=== PATIENT | male | born 1970 | race Caucasian/White ===

== ENCOUNTER → 2016-10-05 | Outpatient (CLI) | payer OTHER ==
[2016-10-05 13:18] LABS: BASO % 0.2 %; BASO ABS # 0.01 K/uL (0-0.2); COMPLETE YES; HEMATOCRIT 44.6 % (42-52); IG% 0.2 %; LYMPH % 26.4 %; LYMPH ABS # 1.56 K/uL (1.2-3.4); MEAN CELL VOLUME 93.5 fL (80-100); MEAN CORPUSCULAR HGB CONC 33.2 g/dl (32-36); MONO % 9.5 %; NEUT % 60.7 %; PLATELET COUNT 216 K/uL (130-400); RED BLOOD COUNT 4.77 M/uL (4.7-6.1); WHITE BLOOD COUNT 5.92 K/uL (4.8-10.8)
[2016-10-05 14:08] LABS: ALT/SGPT 39 U/L (12-78); BLOOD UREA NITROGEN 15 mg/dl (7-18); BUN/CREATININE RATIO 13.8 (10-20); CALCIUM 9.1 mg/dl (8.5-10.1); CARBON DIOXIDE 26 mmol/L (21-32); CHLORIDE 105 mmol/L (98-107); CHOLESTEROL 185 mg/dl (0-200); GLUCOSE 112 mg/dl (70-99); POTASSIUM 4.2 mmol/L (3.5-5.1); SODIUM 138 mmol/L (136-145); TRIGLYCERIDES 225 mg/dl (0-150); VERY LOW DENSITY LIPOPROT CALC 45 mg/dl
[2016-10-05 14:11] LABS: ALB/GLOB RATIO 1.2 (0.9-2); ALKALINE PHOSPHATASE 55 U/L (45-117); AST/SGOT 19 U/L (15-37); CHOLESTEROL/HDL RATIO 4.9; HDL CHOLESTEROL 38 mg/dl; LDL CHOLESTEROL CALCULATED 102 mg/dl
== END | disposition home or self-care (01) ==
LOC: C.LABMFLN 09:06
PROVIDERS: ATTEND Family Medicine
DX: I10 Essential (primary) hypertension (principal); E78.5 Hyperlipidemia, unspecified